=== PATIENT | male | born 1950 | race Caucasian/White ===

== ENCOUNTER 2016-08-21 20:46 | Emergency (ER) | payer OTHER | END 2016-08-21 23:29 | disposition home or self-care (01) | LOC: ER 20:46 | DX: S13.4XXA Sprain of ligaments of cervical spine, initial encounter (principal); V49.9XXA Car occupant (driver) (passenger) injured in unspecified traffic accident, initial encounter; F17.210 Nicotine dependence, cigarettes, uncomplicated; Z79.899 Other long term (current) drug therapy ==

== ENCOUNTER 2016-08-30 00:14 | Emergency (ER) | payer OTHER | END 2016-08-30 01:03 | disposition left against medical advice (07) | LOC: ER 00:14 | DX: S13.4XXA Sprain of ligaments of cervical spine, initial encounter (principal); S33.9XXA Sprain of unspecified parts of lumbar spine and pelvis, initial encounter; I10 Essential (primary) hypertension; J44.9 Chronic obstructive pulmonary disease, unspecified; K21.9 Gastro-esophageal reflux disease without esophagitis; Z79.899 Other long term (current) drug therapy; F17.210 Nicotine dependence, cigarettes, uncomplicated; V89.2XXA Person injured in unspecified motor-vehicle accident, traffic, initial encounter ==

== ENCOUNTER 2016-08-30 01:31 | Emergency (ER) | payer OTHER | END 2016-08-30 02:02 | disposition home or self-care (01) | LOC: ER 01:31 | DX: S16.1XXA Strain of muscle, fascia and tendon at neck level, initial encounter (principal); S39.012A Strain of muscle, fascia and tendon of lower back, initial encounter; F17.210 Nicotine dependence, cigarettes, uncomplicated; Z79.899 Other long term (current) drug therapy; V89.2XXA Person injured in unspecified motor-vehicle accident, traffic, initial encounter ==

== ENCOUNTER 2016-09-21 23:08 | Emergency (ER) | payer MEDICARE, OTHER | END 2016-09-22 01:12 | disposition home or self-care (01) | LOC: ER 23:08 | DX: J44.1 Chronic obstructive pulmonary disease with (acute) exacerbation (principal); I10 Essential (primary) hypertension; F17.210 Nicotine dependence, cigarettes, uncomplicated; Z99.81 Dependence on supplemental oxygen | CPT/HCPCS: 36415; 96365; 96375; J0696 ==

== ENCOUNTER 2016-10-03 16:24 | Emergency (ER) | payer OTHER, MEDICARE | END 2016-10-03 18:10 | disposition home or self-care (01) | LOC: ER 16:24 | DX: S20.212A Contusion of left front wall of thorax, initial encounter (principal); I10 Essential (primary) hypertension; F17.210 Nicotine dependence, cigarettes, uncomplicated; Z99.81 Dependence on supplemental oxygen; W19.XXXA Unspecified fall, initial encounter; Y92.009 Unspecified place in unspecified non-institutional (private) residence as the place of occurrence of the external cause ==

== ENCOUNTER 2016-10-14 19:05 | Emergency (ER) | payer OTHER, MEDICARE | END 2016-10-14 20:51 | disposition home or self-care (01) | LOC: ER 19:05 | DX: S01.112A Laceration without foreign body of left eyelid and periocular area, initial encounter (principal); S40.012A Contusion of left shoulder, initial encounter; I10 Essential (primary) hypertension; F17.210 Nicotine dependence, cigarettes, uncomplicated; Z23 Encounter for immunization; Z99.81 Dependence on supplemental oxygen; W01.198A Fall on same level from slipping, tripping and stumbling with subsequent striking against other object, initial encounter; Y92.481 Parking lot as the place of occurrence of the external cause | CPT/HCPCS: 90471 ==